=== PATIENT | male | born 1950 | race Caucasian/White ===

== ENCOUNTER 2020-06-16 11:42 | Emergency (ER) | payer MEDICARE ==
[2020-06-16 13:15] LABS: BASOPHIL 0.7 % (0-2); EOSINOPHIL 1.9 % (0-7); HCT 37.5 % (42.0-52.0); HGB 11.9 g/dl (13.2-18.0); LYMPHOCYTE 13.5 % (15-48); MCH 33.8 pg (25.0-31.0); MCHC 31.7 g/dL (32.0-36.0); MCV 106.5 fL (78.0-100.0); MONOCYTE 9.7 % (0-12); MPV 9.4 fL (6.0-9.5); NRBC 0; PLT 528 K/uL (150-400); RBC 3.52 M/uL (4.70-6.00); WBC 8.5 K/uL (4.0-10.5)
[2020-06-16 13:28] LABS: ALBUMIN 3.1 g/dL (3.4-5.0); BILIRUBIN - TOTAL 0.2 mg/dL (0.2-1.0); BUN/CREAT RATIO (CALC) 23.4 RATIO; CREATININE 0.47 mg/dL (0.67-1.17); GLOBULIN (CALCULATION) 3.8 g/dL; POTASSIUM 3.9 mmol/L (3.5-5.1); TOTAL PROTEIN 6.9 g/dL (6.4-8.2)
[2020-06-16 13:35] LABS: INR 1.08 (0.9-1.2); PROTHROMBIN TIME 13.3 SECONDS (11.4-13.6); PTT 28.5 SECONDS (22.2-34.7)
[2020-06-16] MEDS ORDERED: KEFLEX250 MG PO (15:18)
[2020-06-21] MEDS ORDERED: MORPHINE 30MG E30 MG PO (10:31)
[2020-06-22] MEDS ORDERED: MOTRIN600 MG PO (12:51)
[2020-06-22] MEDS ORDERED: ACETAMINOPHEN500 M1 PO (12:51)
== END 2020-06-16 15:47 | disposition home or self-care (01) ==
LOC: FER 11:42
PROVIDERS: Emergency Medicine
DX: L04.0 Acute lymphadenitis of face, head and neck (principal); F17.210 Nicotine dependence, cigarettes, uncomplicated; Z85.01 Personal history of malignant neoplasm of esophagus; Z85.118 Personal history of other malignant neoplasm of bronchus and lung
CPT/HCPCS: 36415; 71045; 80053; 83605; 84145; 85025; 85610; 85730; 87070; 87077; 87186; 87205; J1170; J2405; J7030

== ENCOUNTER → 2020-06-22 | Day surgery (SDC) | payer MEDICARE ==
[~2020-06-22] MED LIST: ACETAMINOPHEN500 M1 PO; KEFLEX250 MG PO; MORPHINE 30MG E30 MG PO; MOTRIN600 MG PO
== END | disposition home or self-care (01) ==
LOC: FAS 08:14
DX: C78.02 Secondary malignant neoplasm of left lung (principal); R22.1 Localized swelling, mass and lump, neck; F17.210 Nicotine dependence, cigarettes, uncomplicated; F32.9 Major depressive disorder, single episode, unspecified; Z92.3 Personal history of irradiation; Z86.010 Personal history of colon polyps; Z90.49 Acquired absence of other specified parts of digestive tract; Z98.1 Arthrodesis status; Z98.890 Other specified postprocedural states; Z20.822 Contact with and (suspected) exposure to COVID-19
CPT/HCPCS: 76000; 88305; C1788; J0690; J1644; J2001; J2250; J2704; J3010; J7120